=== PATIENT | male | born 1970 | race Caucasian/White ===

== ENCOUNTER 2023-04-13 08:00 | Outpatient (CLI) | payer OTHER, SELFPAY | END 2023-04-13 08:01 | disposition home or self-care (01) | LOC: NFLDREF 04-25 11:34 | PROVIDERS: PCP Physician Assistant Medical; Referring Provider Physician Assistant Medical; Visit Provider Physician Assistant Medical | DX: Z13.29 Encounter for screening for other suspected endocrine disorder (principal); Z13.220 Encounter for screening for lipoid disorders; Z12.5 Encounter for screening for malignant neoplasm of prostate | CPT/HCPCS: 80053; 80061; 84443; G0103 ==

== ENCOUNTER 2024-04-24 07:56 | Outpatient (CLI) | payer OTHER, SELFPAY | END 2024-04-24 07:57 | disposition home or self-care (01) | LOC: NFLDREF 04-25 07:30 | PROVIDERS: PCP Physician Assistant Medical; Referring Provider Physician Assistant Medical; Visit Provider Physician Assistant Medical | DX: E78.5 Hyperlipidemia, unspecified (principal); J45.40 Moderate persistent asthma, uncomplicated; Z13.9 Encounter for screening, unspecified; Z12.5 Encounter for screening for malignant neoplasm of prostate | CPT/HCPCS: 80053; 80061; 84443; G0103 ==